=== PATIENT | female | born 1970 | race Caucasian/White ===

== ENCOUNTER 2020-12-08 03:13 | Emergency (ER) | payer BC, OTHER ==
[~2020-12-08] VITALS: Ht 167.6 cm; Wt 122.0 kg
[2020-12-08 03:17] VITALS: BP 159/114
--- NOTE | 2020-12-08 03:26 | NUR ---
PT. C/O SEVERE MUSCLE SPASMS TO NECK AND LEFT SHOULDER X 2 DAYS. HAS BEEN SEEING CHIROPRACTOR FOR SAME WITH NO RELIEF. DENIES INJURY
[2020-12-08] MEDS ORDERED: ACETAMINOPHEN 500 MG TABLET PO ONE (03:30)
[2020-12-08] MEDS ORDERED: DIAZEPAM 5 MG TABLET PO ONE (03:30)
[2020-12-08] MEDS ORDERED: KETOROLAC 30 MG/1 ML IM ONE (03:30)
[2020-12-08] MEDS ORDERED: LIDODERM 5% PATCH TD ONE ×2 (03:30→03:37)
[2020-12-08] MEDS ORDERED: DIAZEPAM 5 MG TABLET ONE (03:37)
[2020-12-08] MEDS ORDERED: ACETAMINOPHEN 500 MG TABLET ONE (03:38)
[2020-12-08] MEDS ORDERED: KETOROLAC 30 MG/1 ML ONE (03:38)
== END 2020-12-08 04:47 | disposition home or self-care (01) ==
LOC: ED 03:41
DX: S29.012A Strain of muscle and tendon of back wall of thorax, initial encounter (principal); R00.0 Tachycardia, unspecified; Z86.39 Personal history of other endocrine, nutritional and metabolic disease; X58.XXXA Exposure to other specified factors, initial encounter; Y93.89 Activity, other specified; Y92.89 Other specified places as the place of occurrence of the external cause; Y99.8 Other external cause status
CPT/HCPCS: 93005; 96372; 99284; J1885